=== PATIENT | female | born 1995 | race Caucasian/White ===

== ENCOUNTER 2019-02-17 06:15 | Emergency (ER) | payer BC, MEDICAID ==
[~2019-02-17] VITALS: Ht 160 cm; Wt 54.0 kg
[2019-02-17 06:19] VITALS: BP 125/56; Ht 160 cm; Wt 54.0 kg
== END 2019-02-17 07:37 | disposition home or self-care (01) ==
LOC: ED 06:15
DX: H60.92 Unspecified otitis externa, left ear (principal)
CPT/HCPCS: J2001